=== PATIENT | female | born 1995 | race Caucasian/White ===

== ENCOUNTER 2016-11-20 11:43 | Observation (INO) | payer OTHER ==
[~2016-11-20] VITALS: Ht 180.3 cm; Wt 130.0 kg
[~2016-11-20 11:43] MED LIST: Z.0.NO CURRENT MEDS
[2016-11-20 11:44] VITALS: BP 141/91; PULSE 103; RESP 15; TEMP 97.4; O2SAT 97
[2016-11-20] MEDS ORDERED: SODIUM CHLORIDE 0.9% FLUSH 10 ML FLUSH IV FLUSH PRN ×2 (12:15→14:00)
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
[2016-11-20 12:48] LABS: AUTOMATED NEUTROPHIL # 6.1 TH/MM3 (1.8-7.7); BASOPHIL # 0.1 TH/MM3 (0-0.2); BASOPHIL % 0.7 % (0.0-2.0); EOSINOPHIL # 0.3 TH/MM3 (0-0.4); EOSINOPHIL % 3.3 % (0.0-4.0); HEMATOCRIT 37.6 % (35.0-46.0); HEMO FLAGS DIFF FINAL; LYMPH % 26.8 % (9.0-44.0); LYMPHOCYTE # 2.6 TH/MM3 (1.0-4.8); MEAN CELL VOLUME 76.4 FL (80.0-100.0); MEAN CORPUSCULAR HEMOGLOBIN 24.9 PG (27.0-34.0); MEAN CORPUSCULAR HGB CONC 32.6 % (32.0-36.0); MONO % 6.6 % (0.0-8.0); NEUT % 62.6 % (16.0-70.0); PLATELET COUNT 357 TH/MM3 (150-450); RED BLOOD COUNT 4.92 MIL/MM3 (4.00-5.30); RED CELL DISTRIBUTION WIDTH 15.1 % (11.6-17.2); WHITE BLOOD COUNT 9.8 TH/MM3 (4.0-11.0)
[2016-11-20 13:00] LABS: APTT (PATIENT) 25.3 SEC (24.3-30.1); PROTHROMBIN TIME - PATIENT 10.9 SEC (9.8-11.6)
[2016-11-20 13:11] LABS: POTASSIUM 3.4 MEQ/L (3.5-5.1)
[2016-11-20] MEDS ORDERED: ENOXAPARIN SODIUM 150 MG/ML SYRINGE SQ ONE (13:30)
[2016-11-20 13:35] VITALS: BP 119/70; PULSE 96; RESP 18; TEMP 97.8; O2SAT 99
[2016-11-20] MEDS ORDERED: ACETAMINOPHEN 325 MG TAB PO PRN (14:00)
[2016-11-20] MEDS ORDERED: ACETAMINOPHEN/HYDROcodone 325 MG/5 MG TAB PO PRN (14:00)
[2016-11-20] MEDS ORDERED: TEMAZEPAM 15 MG CAP PO PRN (14:00)
[2016-11-20] MEDS ORDERED: ONDANSETRON HCL 4 MG/2 ML VIAL IVP PRN (14:00)
[2016-11-20] MEDS ORDERED: MAGNESIUM HYDROXIDE SUSP 30 ML CUP PO PRN (14:00)
[2016-11-20] MEDS ORDERED: NALOXONE HCL 0.4 MG/ML AMP IV PUSH PRN (14:00)
--- NOTE | 2016-11-20 15:35 | RADRPT ---
EXAM DATE/TIME: 11/20/2016 14:26 [place] COMPARISON: No previous studies available for comparison. EXTERNAL COMPARISON : [facility], CTA CHEST W 3D PROCESSING November 20, 2016. INDICATIONS : Pulmonary embolism. MEDICAL HISTORY : Polycystic ovarian disease. Pulmonary embolism. SURGICAL HISTORY : None. ENCOUNTER: Initial ACUITY: 1 day PAIN SCORE: 0/10 LOCATION: Bilateral leg. TECHNIQUE: Venous ultrasound of the left and right leg was performed from the inguinal ligament to the proximal calf. Real-time, color Doppler and spectral tracing, compression and augmentation techniques were us ed. FINDINGS: RIGHT LEG: There is normal compressibility of the deep venous system from the inguinal region to the proximal ca lf. No echogenic clot is seen in the lumen of the common femoral, femoral, popliteal, and posterior tibial veins. There is a normal response of the venous system to proximal and distal augmentation an d respiration. LEFT LEG: There is normal compressibility of the deep venous system from the inguinal region to the proximal ca lf. No echogenic clot is seen in the lumen of the common femoral, femoral, popliteal, and posterior tibial veins. There is a normal response of the venous system to proximal and distal augmentation an d respiration. CONCLUSION: 1. No evidence of deep venous thrombosis. Keny Salazar MD on November 20, 2016 at 15:34 Board Certified Radiologist. This report was verified electronically.
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
[2016-11-20 16:00] VITALS: BP 130/62; PULSE 59; RESP 18; TEMP 97; O2SAT 97
[2016-11-20 20:38] VITALS: BP 127/66; PULSE 102; RESP 20; TEMP 96.6; O2SAT 97
[2016-11-20] MEDS: SODIUM CHLORIDE 0.9% FLUSH 10 ML FLUSH IV FLUSH SCH (21:29)
[2016-11-20] MEDS: RIVAROXABAN 15 MG TAB PO SCH (21:29)
[2016-11-21 00:25] VITALS: BP 120/70; PULSE 100; RESP 20; TEMP 98.2; O2SAT 98
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
[2016-11-21 07:13] LABS: AUTOMATED NEUTROPHIL # 5.6 TH/MM3 (1.8-7.7); BASOPHIL # 0.1 TH/MM3 (0-0.2); BASOPHIL % 0.7 % (0.0-2.0); EOSINOPHIL # 0.4 TH/MM3 (0-0.4); EOSINOPHIL % 4.7 % (0.0-4.0); HEMATOCRIT 35.2 % (35.0-46.0); HEMO FLAGS DIFF FINAL; LYMPH % 25.2 % (9.0-44.0); LYMPHOCYTE # 2.3 TH/MM3 (1.0-4.8); MEAN CELL VOLUME 77.1 FL (80.0-100.0); MEAN CORPUSCULAR HEMOGLOBIN 25.3 PG (27.0-34.0); MEAN CORPUSCULAR HGB CONC 32.9 % (32.0-36.0); MONO % 9.3 % (0.0-8.0); NEUT % 60.1 % (16.0-70.0); PLATELET COUNT 324 TH/MM3 (150-450); RED BLOOD COUNT 4.57 MIL/MM3 (4.00-5.30); WHITE BLOOD COUNT 9.3 TH/MM3 (4.0-11.0)
[2016-11-21 07:37] LABS: BICARBONATE 21.8 MEQ/L (21.0-32.0); POTASSIUM 3.9 MEQ/L (3.5-5.1)
[2016-11-21 08:00] VITALS: BP 121/72; PULSE 91; RESP 18; TEMP 98; O2SAT 95
[2016-11-21] MEDS ORDERED: RIVAROXABAN 20 MG TAB PO SCH (09:00)
[2016-11-21] MEDS: RIVAROXABAN 15 MG TAB PO SCH ×2 (09:03→19:29)
[2016-11-21] MEDS: SODIUM CHLORIDE 0.9% FLUSH 10 ML FLUSH IV FLUSH SCH (09:03)
[2016-11-21] MEDS ORDERED: XARE20TA PO (09:20)
[2016-11-21] MEDS ORDERED: XARE15TA PO (09:20)
--- NOTE | 2016-11-21 09:22 | HHI.DCPOC ---
Discharge Care Plan Diagnosis: (1) Bilateral pulmonary embolism (2) Thyroid nodule Goals to Promote Your Health * To prevent worsening of your condition and complications * To maintain your health at the optimal level Directions to Meet Your Goals Take your medications as prescribed Follow your dietary instruction Follow activity as directed Keep your appointments as scheduled Take your immunizations and boosters as scheduled If your symptoms worsen call your PCP, if no PCP go to Urgent Care Center or Emergency Room Smoking is Dangerous to Your Health. Avoid second hand smoke Call the 24-hour hour crisis hotline for domestic abuse at Bridgett Sterling Nov 21, 2016 09:22 Jerry Fu DO Nov 22, 2016 01:10
--- NOTE | 2016-11-21 09:25 | PD.ONC.PN ---
Subjective Subjective Remarks Afebrile overnight. Patient vomited this morning, about thirty minutes after taking her xarelto. She ate a muffin and some chocolate milk with her pill, then started feeling nauseated and about 20-30 minutes later vomited. No abdominal pain. She no longer feels nauseated. Objective Data Date Time Temp Pulse Resp B/P (MAP) Pulse Ox O2 Delivery O2 Flow Rate FiO2 11/21/16 08:00 98.0 91 18 121/72 (88) 95 11/21/16 00:25 98.2 100 20 120/70 (87) 98 11/20/16 20:38 96.6 102 20 127/66 (86) 97 11/20/16 17:30 11/20/16 16:00 97.0 59 18 130/62 (84) 97 11/20/16 13:35 18 99 Room Air 11/20/16 13:35 97.8 96 18 119/70 (86) 99 Room Air 11/20/16 12:10 20 Room Air 11/20/16 11:44 97.4 103 15 141/91 (108) 97 11/21/16 11/21/16 11/21/16 07:00 15:00 23:00 Intake Total 780 ml Balance 780 ml Result Diagram: 11/21/16 0627 11/21/16 0627 Laboratory Results Laboratory Tests Test 11/20/16 12:30 11/21/16 06:27 White Blood Count 9.8 TH/MM3 9.3 TH/MM3 Red Blood Count 4.92 MIL/MM3 4.57 MIL/MM3 Hemoglobin 12.3 GM/DL 11.6 GM/DL Hematocrit 37.6 % 35.2 % Mean Corpuscular Volume 76.4 FL 77.1 FL Mean Corpuscular Hemoglobin 24.9 PG 25.3 PG Mean Corpuscular Hemoglobin Concent 32.6 % 32.9 % Red Cell Distribution Width 15.1 % 15.0 % Platelet Count 357 TH/MM3 324 TH/MM3 Mean Platelet Volume 6.8 FL 7.1 FL Neutrophils (%) (Auto) 62.6 % 60.1 % Lymphocytes (%) (Auto) 26.8 % 25.2 % Monocytes (%) (Auto) 6.6 % 9.3 % Eosinophils (%) (Auto) 3.3 % 4.7 % Basophils (%) (Auto) 0.7 % 0.7 % Neutrophils # (Auto) 6.1 TH/MM3 5.6 TH/MM3 Lymphocytes # (Auto) 2.6 TH/MM3 2.3 TH/MM3 Monocytes # (Auto) 0.6 TH/MM3 0.9 TH/MM3 Eosinophils # (Auto) 0.3 TH/MM3 0.4 TH/MM3 Basophils # (Auto) 0.1 TH/MM3 0.1 TH/MM3 CBC Comment DIFF FINAL DIFF FINAL Differential Comment Prothrombin Time 10.9 SEC Prothromb Time International Ratio 1.0 RATIO Activated Partial Thromboplast Time 25.3 SEC Blood Urea Nitrogen 14 MG/DL 11 MG/DL Creatinine 1.04 MG/DL 0.88 MG/DL Random Glucose 108 MG/DL 96 MG/DL Calcium Level 8.4 MG/DL 8.8 MG/DL Sodium Level 137 MEQ/L 137 MEQ/L Potassium Level 3.4 MEQ/L 3.9 MEQ/L Chloride Level 105 MEQ/L 106 MEQ/L Carbon Dioxide Level 25.0 MEQ/L 21.8 MEQ/L Anion Gap 7 MEQ/L 9 MEQ/L Estimat Glomerular Filtration Rate 66 ML/MIN 80 ML/MIN Imaging Studies Last 24 hours Impressions Lower Extremity Ultrasound 11/20/16 1237 Signed Impressions: Service Date/Time: Sunday, November 20, 2016 14:26 - CONCLUSION: 1. No evidence of deep venous thrombosis. Keny Salazar MD Administered Medications Medications (Trade) Dose Ordered Sig/Lulu Route PRN Reason Start Time Stop Time Status Last Admin Dose Admin Sodium Chloride (NS Flush) 2 ml BID IV FLUSH 11/20/16 21:00 11/21/16 09:03 Acetaminophen/ Hydrocodone Bitart (Byron 5-325 Mg) 1 tab Q6H PRN PO PAIN 1-10 11/20/16 14:00 11/20/16 19:21 Rivaroxaban (Xarelto) 15 mg BID PO 11/20/16 21:00 12/11/16 20:59 11/21/16 09:03 Objective Remarks GENERAL: Young woman, anxious appearing, sitting up in bed in nad. SKIN: Warm and dry. HEAD: Normocephalic. EYES: No injection or drainage. NECK: Supple, trachea midline. CARDIOVASCULAR: Regular rate and rhythm RESPIRATORY: Breath sounds equal bilaterally. No accessory muscle use. GASTROINTESTINAL: Abdomen soft, non-tender, nondistended. EXTREMITIES: No cyanosis, or edema. NEUROLOGICAL: No obvious focal deficit. Awake, alert, and oriented x3. Assessment/Plan Problem List: (1) Bilateral pulmonary embolism ICD Codes: I26.99 - Other pulmonary embolism without acute cor pulmonale Status: Acute Plan: 11/21: await 2D echo to evaluate for heart strain. fs faxed to [facility]pr for follow up upon discharge. start prn ativan for anxiety. --Provoked bilateral pulmonary embolism with no DVT. --most likely due to a prolonged car ride when she evacuated [place]. Assessment 21y/o female with pulmonary embolism. history of polycystic ovarian syndrome and morbid obesity. Attending Statement The exam, history, and the medical decision-making described in the above note were completed with the assistance of the mid-level provider. I reviewed and agree with the findings presented. I attest that I had a [id number] encounter with the patient on the same day, and personally performed and documented my assessment and findings in the medical record. Pt denies any pleuritic CP or SOB. ON xarelto. Tolerating well. Ok to d/c follow up as outpt. Amena Saunders Nov 21, 2016 09:25 Samuel Plascencia MD Nov 21, 2016 19:51
--- NOTE | 2016-11-21 09:27 | HHI.PR ---
Subjective Remarks Patient feels well denies SOB left sided chest discomfort still present but, "a little better" Objective Vitals Vital Signs Date Time Temp Pulse Resp B/P (MAP) Pulse Ox O2 Delivery O2 Flow Rate FiO2 11/21/16 08:00 98.0 91 18 121/72 (88) 95 11/21/16 00:25 98.2 100 20 120/70 (87) 98 11/20/16 20:38 96.6 102 20 127/66 (86) 97 11/20/16 17:30 11/20/16 16:00 97.0 59 18 130/62 (84) 97 11/20/16 13:35 18 99 Room Air 11/20/16 13:35 97.8 96 18 119/70 (86) 99 Room Air 11/20/16 12:10 20 Room Air 11/20/16 11:44 97.4 103 15 141/91 (108) 97 Result Diagram: 11/21/16 0627 11/21/16 0627 Other Results Laboratory Tests Test 11/20/16 12:30 11/21/16 06:27 White Blood Count 9.8 TH/MM3 9.3 TH/MM3 Red Blood Count 4.92 MIL/MM3 4.57 MIL/MM3 Hemoglobin 12.3 GM/DL 11.6 GM/DL Hematocrit 37.6 % 35.2 % Mean Corpuscular Volume 76.4 FL 77.1 FL Mean Corpuscular Hemoglobin 24.9 PG 25.3 PG Mean Corpuscular Hemoglobin Concent 32.6 % 32.9 % Red Cell Distribution Width 15.1 % 15.0 % Platelet Count 357 TH/MM3 324 TH/MM3 Mean Platelet Volume 6.8 FL 7.1 FL Neutrophils (%) (Auto) 62.6 % 60.1 % Lymphocytes (%) (Auto) 26.8 % 25.2 % Monocytes (%) (Auto) 6.6 % 9.3 % Eosinophils (%) (Auto) 3.3 % 4.7 % Basophils (%) (Auto) 0.7 % 0.7 % Neutrophils # (Auto) 6.1 TH/MM3 5.6 TH/MM3 Lymphocytes # (Auto) 2.6 TH/MM3 2.3 TH/MM3 Monocytes # (Auto) 0.6 TH/MM3 0.9 TH/MM3 Eosinophils # (Auto) 0.3 TH/MM3 0.4 TH/MM3 Basophils # (Auto) 0.1 TH/MM3 0.1 TH/MM3 CBC Comment DIFF FINAL DIFF FINAL Differential Comment Prothrombin Time 10.9 SEC Prothromb Time International Ratio 1.0 RATIO Activated Partial Thromboplast Time 25.3 SEC Blood Urea Nitrogen 14 MG/DL 11 MG/DL Creatinine 1.04 MG/DL 0.88 MG/DL Random Glucose 108 MG/DL 96 MG/DL Calcium Level 8.4 MG/DL 8.8 MG/DL Sodium Level 137 MEQ/L 137 MEQ/L Potassium Level 3.4 MEQ/L 3.9 MEQ/L Chloride Level 105 MEQ/L 106 MEQ/L Carbon Dioxide Level 25.0 MEQ/L 21.8 MEQ/L Anion Gap 7 MEQ/L 9 MEQ/L Estimat Glomerular Filtration Rate 66 ML/MIN 80 ML/MIN Human Chorionic Gonadotropin, Quant LESS THAN 1 MIU/ML Imaging CT of the chest done at [facility] 11/20/16 which showed small bilateral pulmonary emboli more on the right than the left. They also pleural-based areas of consolidation noted laterally in the right mid lung and posterior laterally in the base. There is a benign appearing 7 mm hypodense nodule noted in the right lobe of thyroid. Objective Remarks GENERAL: This is an obese, well-developed patient CARDIOVASCULAR: Regular rate and rhythm RESPIRATORY: diminished bilateral bases GASTROINTESTINAL: Abdomen soft, non-tender, nondistended. No hepato-splenomegaly , or palpable masses. No guarding. MUSCULOSKELETAL: Extremities without clubbing, cyanosis, or edema. No joint tenderness, effusion, or edema noted. No calf tenderness. Negative Homans sign bilaterally. NEUROLOGICAL: Awake and alert. No focal deficits. Motor and sensory grossly within normal limits. Five out of 5 muscle strength in all muscle groups. Normal speech. A/P Problem List: (1) Bilateral pulmonary embolism ICD Codes: I26.99 - Other pulmonary embolism without acute cor pulmonale Status: Acute Plan: Bilateral PE Patient has had recent prolonged immobility from car ride to [place] CT of the chest done at [facility] 11/20/16 which showed small bilateral pulmonary emboli more on the right than the left. They also pleural- based areas of consolidation noted laterally in the right mid lung and posterior laterally in the base. There is a benign appearing 7 mm hypodense nodule noted in the right lobe of thyroid. possible remote family history of father having had blood clots in his 30s but does not know why as she has not been in contact with him for years. Patient given Lovenox 130 mg x1 in ER will stated on Xarelto 15 mg PO BID for 21 days, then transition to Xarelto 20 mg PO daily hypercoagulation labs ordered and pending consult hematology, appreciate assistance. Patient will need to follow up with hematology BLE US showed no evidence of DVT 2- D Echocardiogram finding: Normal left ventricular size right ventricle is mildly dilated Right ventricle systolic function is normal Right ventricle was not well visualized Left atrium size is upper limits of normal Trace mitral valve regurgitation Aortic valve is not well visualized No aortic valve stenosis No aortic valve regurgitation Tricuspid valve is not well visualized Trace tricuspid valve regurgitation Study reviewed with cardiology- No evidence of right heart strain case discussed with cardiology and hematology- patient cleared for DC Thyroid nodule recommend follow up with PCP TSH and T4 added fro completeness DVT prophylaxis patient in Xarelto DC patient home in stable condition with Xarelto 15 mg PO BID for 21 days, then transition to Xarelto 20 mg PO daily and follow up with PCP Dr. Miller and Hematology Dr. Plascencia Assessment and Plan Patient examined. Assessment and plan formulated with Bridgett Sterling PA-C. I agree with the above. Bridgett Sterling Nov 21, 2016 09:27 Jerry Fu DO Nov 22, 2016 01:10
[2016-11-21] MEDS ORDERED: LORazepam 0.5 MG TAB PO PRN (09:45)
[2016-11-21 11:50] LABS: BETA HCG QUANT LESS THAN 1 MIU/ML (0-5)
--- NOTE | 2016-11-21 11:53 | ECHRPT ---
Indication: rt heart strain bilat PE CONCLUSIONS Normal left ventricular size. The right ventricle is mildly dilated. The right ventricular systoilc function is normal. The right ventricle was not well visualized. The left atrial size is upper limits of normal. The interatrial septum not well visualized. The mitral valve is not well visualized. Trace mitral valve regurgitation. The aortic valve is not well visualized. No aortic valve stenosis. No aortic valve regurgitation. The tricuspid valve is not well visualized. There is trace tricuspid valve regurgitation. The pulmonary valve is not well visualized. The inferior vena cava was not well visualized. BP: / HR: Rhythm: MEASUREMENTS (Male / Female) Normal Values Technical Quality:Technically difficult study 2D ECHO LV Diastolic Diameter PLAX 4.9 cm 4.2 - 5.9 / 3.9 - 5.3 cm LV Systolic Diameter PLAX 3.5 cm IVS Diastolic Thickness 0.7 cm 0.6 - 1.0 / 0.6 - 0.9 cm LVPW Diastolic Thickness 1.0 cm 0.6 - 1.0 / 0.6 - 0.9 cm LV Relative Wall Thickness 0.3 RV Internal Dim ED PLAX 2.9 cm M-MODE Aortic Root Diameter MM 2.7 cm LA Systolic Diameter MM 4.0 cm LA Ao Ratio MM 1.5 AV Cusp Separation MM 2.0 cm DOPPLER Mitral E Point Velocity 86.4 cm/s Mitral A Point Velocity 66.1 cm/s Mitral E to A Ratio 1.3 LV E' Lateral Velocity 16.4 cm/s Mitral E to LV E' Lateral Ratio 5.3 LV E' Septal Velocity 8.3 cm/s Mitral E to LV E' Septal Ratio 10.4 TR Peak Velocity 291.0 cm/s TR Peak Gradient 33.9 mmHg Right Atrial Pressure 10.0 mmHg Pulmonary Artery Systolic Pressu 43.9 mmHg Right Ventricular Systolic Press 43.9 mmHg FINDINGS LEFT VENTRICLE The left ventricular systolic function is normal with an estimated ejection fraction in the range of 60-65%. Normal left ventricular size. RIGHT VENTRICLE The right ventricle is mildly dilated. The right ventricular systoilc function is normal. The right ventricle was not well visualized. LEFT ATRIUM The left atrial size is upper limits of normal. RIGHT ATRIUM The right atrial size is normal. ATRIAL SEPTUM Normal atrial septal thickness without atrial level shunting by limited color doppler interrogation. The interatrial septum not well visualized. AORTA The aortic root and proximal ascending aorta are normal in size on limited imaging. MITRAL VALVE The mitral valve is not well visualized. Structurally normal mitral valve. Trace mitral valve regurgitation. AORTIC VALVE The aortic valve is not well visualized. No aortic valve stenosis. No aortic valve regurgitation. TRICUSPID VALVE Structurally normal tricuspid valve. The tricuspid valve is not well visualized. There is trace tricuspid valve regurgitation. PULMONARY VALVE The pulmonary valve is not well visualized. VESSELS The inferior vena cava was not well visualized. PERICARDIUM No pericardial effusion. Monty Jose MD (Electronically Signed) Final Date:21 November 2016 11:51
[2016-11-21 12:00] VITALS: BP 124/68; PULSE 86; RESP 20; TEMP 98; O2SAT 98
[2016-11-21 16:00] VITALS: BP 122/73; PULSE 89; RESP 18; TEMP 96.5; O2SAT 95
[2016-11-21 16:22] LABS: FREE T4 1.34 NG/DL (0.76-1.46)
== END 2016-11-21 19:37 | disposition hospice, home (50) ==
LOC: NEPC 11:43 → NEDA 14:05 → N07A 15:50
PROVIDERS: ADMIT Hospitalist; ATTEND Hospitalist
DX: I26.99 Other pulmonary embolism without acute cor pulmonale (principal); E04.1 Nontoxic single thyroid nodule; R11.2 Nausea with vomiting, unspecified; E28.2 Polycystic ovarian syndrome; E66.01 Morbid (severe) obesity due to excess calories; Z79.01 Long term (current) use of anticoagulants
CPT/HCPCS: 80048; 84439; 84443; 84702; 85025; 85610; 85730; 93306; 93970; 94150; 96372; 96374; G0378; G8987-GP; G8988-GP; J1650; J2405